=== PATIENT | male | born 1965 | race Asian ===

== ENCOUNTER 2024-01-04 08:21 | Emergency (ER) | payer OTHER ==
[~2024-01-04] VITALS: Ht 172.7 cm; Wt 81.0 kg
[2024-01-04 08:33] VITALS: O2SAT 99
[2024-01-04 11:43] VITALS: BP 147/83; PULSE 80; RESP 17; TEMP 98.1
== END 2024-01-04 11:44 | disposition home or self-care (01) ==
LOC: ER 08:21
DX: R60.9 Edema, unspecified (principal); Z68.27 Body mass index [BMI] 27.0-27.9, adult
CPT/HCPCS: 71045; 99283